=== PATIENT | female | born 1990 | race Two or more races ===

== ENCOUNTER 2023-03-19 14:23 | Emergency (ER) | payer SELFPAY ==
[2023-03-19 14:35] VITALS: BP 102/52; PULSE 52; RESP 17; TEMP 98.4; BMI 38.4
[2023-03-19] MEDS ORDERED: DEXAMETHASONE 4 MG TABLET (FP) PO ONE (15:30)
[2023-03-19] MEDS ORDERED: DEXAMETHASONE SOD PHOSPHATE 10 MG/1 ML VIAL ONE (15:30)
[2023-03-19 16:25] LABS: THROAT:GRP A STREP DETECTED (NOTDETECTED)
== END 2023-03-19 15:38 | disposition home or self-care (01) ==
LOC: JERFT 14:23
DX: R07.0 Pain in throat (principal); R51.9 Headache, unspecified; R68.83 Chills (without fever); J02.9 Acute pharyngitis, unspecified
CPT/HCPCS: 0241U-QW; 36415; 87651; 99283-25

== ENCOUNTER 2023-03-24 16:15 | Emergency (ER) | payer SELFPAY ==
[2023-03-24 17:00] VITALS: BP 102/47; PULSE 74; RESP 14; TEMP 98.8; BMI 36.0
[2023-03-24] MEDS ORDERED: FLUCONAZOLE 150 MG TABLET PO ONE ×2 (17:51→18:14)
[2023-03-24 18:33] LABS: EPI CELLS >36 /uL (0-25.1); HYALINE CASTS 4 /uL (0-3.1); PH,URINE 5.5 (5.0-8.0); URINE APPEARANCE CLOUDY; URINE BACTERIA 2730 /uL (0-1359); URINE BILIRUBIN NEGATIVE (NEGATIVE); URINE COLOR YELLOW; URINE GLUCOSE (UA) NEGATIVE (NEGATIVE); URINE KETONE NEGATIVE (NEGATIVE); URINE LEUK ESTERASE 2+ (NEGATIVE); URINE NITRITE NEGATIVE (NEGATIVE); URINE PROTEIN NEGATIVE (NEGATIVE); URINE RBC 18 /uL (0-23.9); URINE UROBILINOGEN 0.2 mg/dL (0.2-1.0); URINE WBC 382 /uL (0-25.8)
[2023-03-24 19:47] LABS: HCG,QUALITATIVE URINE Negative
== END 2023-03-24 19:04 | disposition home or self-care (01) ==
LOC: JERFT 16:15
DX: N39.0 Urinary tract infection, site not specified (principal); B37.31 Acute candidiasis of vulva and vagina; L29.2 Pruritus vulvae; N89.8 Other specified noninflammatory disorders of vagina
CPT/HCPCS: 36415; 81003; 84703; 87077; 87086; 87110; 87491; 87591; 87661; 99283-25